=== PATIENT | male | born 1940 | race Caucasian/White ===

== ENCOUNTER 2016-06-15 09:32 | Inpatient (IN) | payer MEDICARE ==
[~2016-06-15 09:32] MED LIST: ACCUNEB DP0.63 MG/3 IH; ADVAIR 250-501 EACH IH; ADVAIR DIS1 PUFF/DO1 IH; AMBISOME50 MG/20 M IV; ASA CHILDREN'S81 MG PO; DELTASONE DPS10 MG PO; DESONIDE15 GM TP; DUONEB DPS3 ML IH; GAMUNEX-C10 GM/100 IV; HYALGAN10 MG/1 ML IA; LEVAQUIN DPS500 MG PO; LIPITOR DPS40 MG PO; LIPITOR20 MG PO; MAALOX DPS30 ML PO; NEURONTIN DPS300 MG PO; NEURONTIN DPS600 MG PO; OMEGA-3 DPS1000 MG PO; PANTOPRAZOLE SO40 MG PO; PROTONIX40 MG PO; PROVENTIL HFA6.7 GM IH; REMERON DPS15 MG PO; REMERON DPS30 MG PO; REQUIP1 MG PO; ROBITUSSIN100 MG/5 M PO; SPIRIVA18 MCG IH; SPIRIVA18 MCG PO; SURFAK DPS240 MG PO; SYNTHROID DPS0.05 MG PO; SYNTHROID50 MCG PO; TAMIFLU75 MG PO; TEMOVATE O.05%15 GM TP; THERA1 EACH PO; TYLENOL DPS325 MG PO; ZOLOFT DPS100 MG PO; [UNRECOGNIZED DRUG - OTHER] MS
[2016-06-21] MEDS ORDERED: PROAIR RESPICL90 MCG IH (11:01)
[2016-06-21] MEDS ORDERED: DUONEB DPS3 ML IH (11:01)
[2016-06-21] MEDS ORDERED: LIPITOR DPS40 MG PO (11:01)
[2016-06-21] MEDS ORDERED: DESONIDE15 GM TP (11:03)
[2016-06-21] MEDS ORDERED: CLOBETASOL PROP50 ML TP (11:03)
[2016-06-21] MEDS ORDERED: ADVAIR DIS1 PUFF/DO1 IH (11:04)
[2016-06-21] MEDS ORDERED: NEURONTIN DPS300 MG PO (11:04)
[2016-06-21] MEDS ORDERED: GUAIFENESI100 MG/5 M PO (11:05)
[2016-06-21] MEDS ORDERED: LEVOTHYROXINE50 MCG PO (11:05)
[2016-06-21] MEDS ORDERED: REQUIP1 MG PO (11:06)
[2016-06-21] MEDS ORDERED: ZOLOFT DPS100 MG PO (11:06)
[2016-06-21] MEDS ORDERED: MIRTAZAPINE30 MG PO (11:06)
[2016-06-21] MEDS ORDERED: PANTOPRAZOLE SO40 MG PO (11:06)
[2016-06-21] MEDS ORDERED: ACETAMINOPHEN325 MG PO (11:07)
[2016-06-21] MEDS ORDERED: SPIRIVA18 MCG IH (11:07)
[2016-06-21] MEDS ORDERED: DELTASONE20 MG PO (11:08)
[2016-06-21] MEDS ORDERED: OMEGA-3 DPS1000 MG PO (11:08)
[2016-06-21] MEDS ORDERED: ASPIRIN81 MG PO (11:08)
[2016-06-21] MEDS ORDERED: TOTALDAY MULTI1 EACH PO (11:08)
== END 2016-06-20 13:23 | disposition short-term general hospital (02) | DRG 196 ==
DX: J84.116 Cryptogenic organizing pneumonia (principal); J96.01 Acute respiratory failure with hypoxia; J44.1 Chronic obstructive pulmonary disease with (acute) exacerbation; G62.9 Polyneuropathy, unspecified; H02.055 Trichiasis without entropion left lower eyelid; G47.33 Obstructive sleep apnea (adult) (pediatric); R73.9 Hyperglycemia, unspecified; T38.0X5A Adverse effect of glucocorticoids and synthetic analogues, initial encounter; S05.02XA Injury of conjunctiva and corneal abrasion without foreign body, left eye, initial encounter; E03.9 Hypothyroidism, unspecified; G25.81 Restless legs syndrome; Z79.82 Long term (current) use of aspirin; Z79.52 Long term (current) use of systemic steroids